=== PATIENT | female | born 1965 | race Two or more races ===

== ENCOUNTER → 2017-08-11 | Outpatient (CLI) | payer OTHER ==
[~2017-08-11] MED LIST: SYNTHROID125 MCG; SYNTHROID125 MCG PO; VITAMINA D PO
== END | disposition home or self-care (01) ==
LOC: PPHC 11:07
DX: M25.50 Pain in unspecified joint (principal)

== ENCOUNTER 2017-08-15 15:14 | Outpatient (CLI) | payer OTHER | END 2017-08-15 15:41 | disposition home or self-care (01) | LOC: RAD 15:14 | DX: M54.9 Dorsalgia, unspecified (principal) ==

== ENCOUNTER → 2017-08-15 18:19 | Outpatient (CLI) | payer OTHER | END | disposition home or self-care (01) | LOC: LAB 08:33 | DX: M25.50 Pain in unspecified joint (principal); E03.8 Other specified hypothyroidism; E55.9 Vitamin D deficiency, unspecified; R53.1 Weakness ==

== ENCOUNTER → 2017-08-20 | Outpatient (CLI) | payer OTHER | END | disposition home or self-care (01) | LOC: PPHC 10:22 | DX: Z01.89 Encounter for other specified special examinations (principal) ==

== ENCOUNTER 2017-10-28 08:18 | Outpatient (CLI) | payer OTHER | END 2017-10-28 08:26 | disposition home or self-care (01) | LOC: MAMO-SONO 08:18 | DX: Z12.31 Encounter for screening mammogram for malignant neoplasm of breast (principal) ==

== ENCOUNTER 2017-11-07 12:01 | Emergency (ER) | payer OTHER ==
[~2017-11-07] VITALS: Ht 162.6 cm; Wt 68.0 kg
[2017-11-07] MEDS ORDERED: [UNRECOGNIZED DRUG - OTHER] (12:19)
== END 2017-11-07 15:25 | disposition home or self-care (01) ==
LOC: ER 12:01
DX: M94.0 Chondrocostal junction syndrome [Tietze] (principal)

== ENCOUNTER 2017-11-09 12:35 | Outpatient (CLI) | payer OTHER ==
[~2017-11-09 12:35] MED LIST changes: +[UNRECOGNIZED DRUG - OTHER]
== END 2017-11-09 12:43 | disposition home or self-care (01) ==
LOC: SONOGRAMA 12:35 → MAMO-SONO 12:45
DX: N60.11 Diffuse cystic mastopathy of right breast (principal); N60.12 Diffuse cystic mastopathy of left breast

== ENCOUNTER 2018-02-23 12:18 | Outpatient (CLI) | payer OTHER | END 2018-02-23 12:22 | disposition home or self-care (01) | LOC: MAMO-SONO 12:18 | DX: N63.10 Unspecified lump in the right breast, unspecified quadrant (principal) ==

== ENCOUNTER → 2018-02-27 12:59 | Outpatient (CLI) | payer OTHER | END | disposition home or self-care (01) | LOC: LAB 07:53 | DX: M79.1 Myalgia (principal); E55.9 Vitamin D deficiency, unspecified ==

== ENCOUNTER 2018-03-02 12:22 | Outpatient (CLI) | payer OTHER | END 2018-03-02 12:33 | disposition home or self-care (01) | LOC: NUCLEAR 12:22 | DX: M85.80 Other specified disorders of bone density and structure, unspecified site (principal) ==

== ENCOUNTER → 2018-03-23 08:35 | Outpatient (CLI) | payer OTHER | END | disposition home or self-care (01) | LOC: LAB 08:22 | DX: E03.8 Other specified hypothyroidism (principal) ==

== ENCOUNTER 2018-04-10 12:27 | Outpatient (CLI) | payer OTHER | END 2018-04-10 12:44 | disposition home or self-care (01) | LOC: SONOGRAMA 12:27 → MAMO-SONO 13:15 | DX: M75.41 Impingement syndrome of right shoulder (principal) ==

== ENCOUNTER 2018-06-16 08:45 | Outpatient (CLI) | payer OTHER | END 2018-06-16 09:17 | disposition home or self-care (01) | LOC: SONOGRAMA 08:45 | DX: E04.8 Other specified nontoxic goiter (principal) ==

== ENCOUNTER 2018-06-16 14:17 | Outpatient (CLI) | payer OTHER | END 2018-06-16 14:21 | disposition home or self-care (01) | LOC: LAB 14:17 | DX: E03.8 Other specified hypothyroidism (principal) ==

== ENCOUNTER → 2018-08-24 | Outpatient (CLI) | payer OTHER | END | disposition home or self-care (01) | LOC: EKG 10:34 | DX: I11.9 Hypertensive heart disease without heart failure (principal) ==

== ENCOUNTER 2018-09-28 14:30 | Outpatient (CLI) | payer OTHER | END 2018-09-28 14:33 | disposition home or self-care (01) | LOC: LAB 14:30 | DX: E03.8 Other specified hypothyroidism (principal); N95.1 Menopausal and female climacteric states ==

== ENCOUNTER 2018-11-28 16:51 | Emergency (ER) | payer OTHER ==
[~2018-11-28] VITALS: Ht 162.6 cm; Wt 73.9 kg
== END 2018-11-28 20:45 | disposition home or self-care (01) ==
LOC: ER 16:51
DX: S00.83XA Contusion of other part of head, initial encounter (principal); S40.012A Contusion of left shoulder, initial encounter; S70.02XA Contusion of left hip, initial encounter; W18.39XA Other fall on same level, initial encounter; Y93.89 Activity, other specified; Y92.098 Other place in other non-institutional residence as the place of occurrence of the external cause; Y99.8 Other external cause status

== ENCOUNTER 2019-01-03 11:17 | Outpatient (CLI) | payer OTHER | END 2019-01-03 13:42 | disposition home or self-care (01) | LOC: LAB 11:17 | DX: A49.3 Mycoplasma infection, unspecified site (principal); J11.1 Influenza due to unidentified influenza virus with other respiratory manifestations ==

== ENCOUNTER 2019-01-10 08:42 | Outpatient (CLI) | payer OTHER | END 2019-01-10 08:45 | disposition home or self-care (01) | LOC: LAB 08:42 | DX: E03.8 Other specified hypothyroidism (principal) ==

== ENCOUNTER 2019-01-10 14:10 | Outpatient (CLI) | payer OTHER | END 2019-01-10 14:28 | disposition home or self-care (01) | LOC: MAMO-SONO 14:10 | DX: Z12.31 Encounter for screening mammogram for malignant neoplasm of breast (principal); Z87.898 Personal history of other specified conditions; N64.4 Mastodynia ==

== ENCOUNTER → 2019-01-11 | Outpatient (CLI) | payer OTHER | END | disposition home or self-care (01) | LOC: RAD 14:28 | DX: M25.551 Pain in right hip (principal); M79.604 Pain in right leg; M25.60 Stiffness of unspecified joint, not elsewhere classified ==

== ENCOUNTER → 2019-02-09 | Outpatient (CLI) | payer OTHER | END | disposition home or self-care (01) | LOC: SONOGRAMA 13:04 → MAMO-SONO 13:15 | DX: M70.61 Trochanteric bursitis, right hip (principal) ==

== ENCOUNTER 2019-04-03 08:49 | Outpatient (CLI) | payer OTHER | END 2019-04-03 08:53 | disposition home or self-care (01) | LOC: LAB 08:49 | DX: E03.8 Other specified hypothyroidism (principal) ==

== ENCOUNTER 2019-04-23 07:07 | Outpatient (CLI) | payer OTHER | END 2019-04-23 07:11 | disposition home or self-care (01) | LOC: LAB 07:07 | DX: D50.8 Other iron deficiency anemias (principal); E83.51 Hypocalcemia; N39.0 Urinary tract infection, site not specified; E78.00 Pure hypercholesterolemia, unspecified; E03.8 Other specified hypothyroidism ==

== ENCOUNTER 2019-08-02 08:44 | Outpatient (CLI) | payer OTHER | END 2019-08-02 15:00 | disposition home or self-care (01) | LOC: LAB 08:44 | DX: E03.8 Other specified hypothyroidism (principal) ==

== ENCOUNTER → 2019-11-20 | Outpatient (CLI) | payer OTHER | END | disposition home or self-care (01) | LOC: SONOGRAMA 14:18 | PROVIDERS: ATTEND General Practice | DX: R10.2 Pelvic and perineal pain (principal) ==

== ENCOUNTER → 2019-11-21 08:10 | Outpatient (CLI) | payer OTHER | END | disposition home or self-care (01) | LOC: LAB 08:10 | PROVIDERS: ATTEND General Practice | DX: R10.2 Pelvic and perineal pain (principal) ==

== ENCOUNTER 2020-01-28 11:00 | Emergency (ER) | payer OTHER ==
[~2020-01-28] VITALS: Ht 162.6 cm; Wt 68.5 kg
[2020-01-28] MEDS ORDERED: DICLOFENAC SODI50 MG PO (15:16)
== END 2020-01-28 15:57 | disposition home or self-care (01) ==
LOC: ER 11:00
DX: R07.89 Other chest pain (principal); F41.9 Anxiety disorder, unspecified; Z03.818 Encounter for observation for suspected exposure to other biological agents ruled out

== ENCOUNTER → 2020-02-07 07:37 | Outpatient (CLI) | payer OTHER ==
[~2020-02-07 07:37] MED LIST changes: +DICLOFENAC SODI50 MG PO
== END | disposition home or self-care (01) ==
LOC: LAB 07:37
PROVIDERS: ATTEND Internal Medicine Endocrinology, Diabetes & Metabolism
DX: E03.8 Other specified hypothyroidism (principal)

== ENCOUNTER 2020-02-11 15:59 | Outpatient (CLI) | payer OTHER | END 2020-02-11 16:03 | disposition home or self-care (01) | LOC: RAD 15:59 | PROVIDERS: ATTEND Physical Medicine & Rehabilitation | DX: M54.2 Cervicalgia (principal) ==

== ENCOUNTER → 2020-02-12 08:00 | Outpatient (CLI) | payer OTHER | END | disposition home or self-care (01) | LOC: PPH VACUNA 08:00 | DX: Z23 Encounter for immunization (principal) ==

== ENCOUNTER → 2020-02-28 12:04 | Outpatient (CLI) | payer OTHER | END | disposition home or self-care (01) | LOC: LAB 12:04 | PROVIDERS: ATTEND Internal Medicine Cardiovascular Disease | DX: E03.8 Other specified hypothyroidism (principal); I10 Essential (primary) hypertension; E11.9 Type 2 diabetes mellitus without complications; E78.2 Mixed hyperlipidemia; E55.9 Vitamin D deficiency, unspecified ==

== ENCOUNTER 2020-02-28 15:03 | Outpatient (CLI) | payer OTHER | END 2020-02-28 15:12 | disposition home or self-care (01) | LOC: MAMO-SONO 15:03 | PROVIDERS: ATTEND Internal Medicine Cardiovascular Disease | DX: Z12.31 Encounter for screening mammogram for malignant neoplasm of breast (principal); N63.11 Unspecified lump in the right breast, upper outer quadrant ==

== ENCOUNTER 2020-03-12 10:06 | Outpatient (CLI) | payer OTHER | END 2020-03-12 10:18 | disposition home or self-care (01) | LOC: NUCLEAR 10:06 | PROVIDERS: ATTEND Physical Medicine & Rehabilitation | DX: M81.0 Age-related osteoporosis without current pathological fracture (principal) ==

== ENCOUNTER 2020-03-20 13:38 | Outpatient (CLI) | payer OTHER | END 2020-03-20 15:00 | disposition home or self-care (01) | LOC: LAB 13:38 | DX: Z20.818 Contact with and (suspected) exposure to other bacterial communicable diseases (principal) ==

== ENCOUNTER 2020-04-03 10:40 | Emergency (ER) | payer OTHER ==
[~2020-04-03] VITALS: Ht 157.5 cm; Wt 69.9 kg
[2020-04-03] MEDS ORDERED: SKELAXIN800 MG PO (15:54)
[2020-04-03] MEDS ORDERED: KETO10TA2 PO (15:54)
== END 2020-04-03 16:13 | disposition home or self-care (01) ==
LOC: ER 10:40
DX: M94.0 Chondrocostal junction syndrome [Tietze] (principal); R07.89 Other chest pain; Z03.818 Encounter for observation for suspected exposure to other biological agents ruled out

== ENCOUNTER 2020-04-11 12:29 | Outpatient (CLI) | payer OTHER ==
[~2020-04-11 12:29] MED LIST changes: +KETO10TA2 PO; +SKELAXIN800 MG PO
== END 2020-04-11 15:00 | disposition home or self-care (01) ==
LOC: MRI 12:29
PROVIDERS: ATTEND Physical Medicine & Rehabilitation
DX: M62.830 Muscle spasm of back (principal); M54.2 Cervicalgia
CPT/HCPCS: 72141

== ENCOUNTER 2020-06-09 14:27 | Outpatient (CLI) | payer OTHER | END 2020-06-09 16:01 | disposition home or self-care (01) | LOC: RAD 14:27 | DX: M41.84 Other forms of scoliosis, thoracic region (principal); M99.02 Segmental and somatic dysfunction of thoracic region ==

== ENCOUNTER 2020-06-20 08:51 | Outpatient (CLI) | payer OTHER | END 2020-06-20 09:00 | disposition home or self-care (01) | LOC: LAB 08:51 | DX: E78.89 Other lipoprotein metabolism disorders (principal); E06.3 Autoimmune thyroiditis ==

== ENCOUNTER 2020-08-27 08:35 | Outpatient (CLI) | payer OTHER | END 2020-08-27 08:36 | disposition home or self-care (01) | LOC: LAB 08:35 | PROVIDERS: ATTEND Specialist | DX: D50.9 Iron deficiency anemia, unspecified (principal); E83.51 Hypocalcemia; N39.0 Urinary tract infection, site not specified; E03.8 Other specified hypothyroidism; E78.89 Other lipoprotein metabolism disorders ==

== ENCOUNTER 2020-10-22 12:34 | Outpatient (CLI) | payer OTHER | END 2020-10-22 12:38 | disposition home or self-care (01) | LOC: SONOGRAMA 12:34 → MAMO-SONO 13:25 | PROVIDERS: ATTEND Internal Medicine Endocrinology, Diabetes & Metabolism | DX: E04.2 Nontoxic multinodular goiter (principal) ==

== ENCOUNTER 2020-12-24 08:50 | Outpatient (CLI) | payer OTHER | END 2020-12-24 15:00 | disposition home or self-care (01) | LOC: LAB 08:50 | PROVIDERS: ATTEND Emergency Medicine Pediatric Emergency Medicine | DX: Z03.818 Encounter for observation for suspected exposure to other biological agents ruled out (principal) ==

== ENCOUNTER → 2021-01-07 08:25 | Outpatient (CLI) | payer OTHER | END | disposition home or self-care (01) | LOC: LAB 08:25 | PROVIDERS: ATTEND Internal Medicine Cardiovascular Disease | DX: I10 Essential (primary) hypertension (principal); E11.9 Type 2 diabetes mellitus without complications; E03.8 Other specified hypothyroidism; E78.2 Mixed hyperlipidemia; M19.90 Unspecified osteoarthritis, unspecified site; A05.8 Other specified bacterial foodborne intoxications ==

== ENCOUNTER 2021-01-08 07:49 | Outpatient (CLI) | payer OTHER | END 2021-01-08 13:20 | disposition home or self-care (01) | LOC: LAB 07:49 | PROVIDERS: ATTEND Internal Medicine Cardiovascular Disease | DX: I10 Essential (primary) hypertension (principal); E11.9 Type 2 diabetes mellitus without complications; E03.8 Other specified hypothyroidism; E78.2 Mixed hyperlipidemia ==

== ENCOUNTER → 2021-02-18 07:42 | Outpatient (CLI) | payer OTHER | END | disposition home or self-care (01) | LOC: LAB 07:42 | PROVIDERS: ATTEND Internal Medicine Cardiovascular Disease | DX: N39.0 Urinary tract infection, site not specified (principal); M12.88 Other specific arthropathies, not elsewhere classified, other specified site; R10.84 Generalized abdominal pain ==

== ENCOUNTER 2021-02-18 08:13 | Outpatient (CLI) | payer OTHER | END 2021-02-18 08:20 | disposition home or self-care (01) | LOC: SONOGRAMA 08:13 | PROVIDERS: ATTEND Internal Medicine Cardiovascular Disease | DX: R10.84 Generalized abdominal pain (principal); N20.0 Calculus of kidney ==

== ENCOUNTER 2021-05-05 07:27 | Outpatient (CLI) | payer OTHER | END 2021-05-05 07:29 | disposition home or self-care (01) | LOC: LAB 07:27 | PROVIDERS: ATTEND Internal Medicine Cardiovascular Disease | DX: I10 Essential (primary) hypertension (principal); E11.9 Type 2 diabetes mellitus without complications; D68.8 Other specified coagulation defects ==

== ENCOUNTER 2021-05-08 11:25 | Outpatient (CLI) | payer OTHER | END 2021-05-08 11:33 | disposition home or self-care (01) | LOC: LAB 11:25 | PROVIDERS: ATTEND Internal Medicine Gastroenterology | DX: Z11.52 Encounter for screening for COVID-19 (principal) ==

== ENCOUNTER 2021-05-25 07:30 | Outpatient (CLI) | payer OTHER | END 2021-05-25 07:45 | disposition home or self-care (01) | LOC: PPH VACUNA 07:30 | PROVIDERS: ATTEND Emergency Medicine Pediatric Emergency Medicine | DX: Z23 Encounter for immunization (principal) ==

== ENCOUNTER 2021-06-15 12:49 | Outpatient (CLI) | payer OTHER | END 2021-06-15 12:58 | disposition home or self-care (01) | LOC: SONOGRAMA 12:49 | PROVIDERS: ATTEND Internal Medicine Endocrinology, Diabetes & Metabolism | DX: E04.2 Nontoxic multinodular goiter (principal) ==

== ENCOUNTER 2021-07-14 09:31 | Outpatient (CLI) | payer OTHER | END 2021-07-14 10:07 | disposition home or self-care (01) | LOC: SONOGRAMA 09:31 | PROVIDERS: ATTEND General Practice | DX: R10.9 Unspecified abdominal pain (principal) ==

== ENCOUNTER 2021-07-14 09:37 | Outpatient (CLI) | payer OTHER | END 2021-07-14 09:38 | disposition home or self-care (01) | LOC: LAB 09:37 | PROVIDERS: ATTEND General Practice | DX: E78.5 Hyperlipidemia, unspecified (principal); Z00.00 Encounter for general adult medical examination without abnormal findings; E55.9 Vitamin D deficiency, unspecified; N39.0 Urinary tract infection, site not specified; R42 Dizziness and giddiness; R10.9 Unspecified abdominal pain ==

== ENCOUNTER 2021-08-06 07:45 | Outpatient (CLI) | payer OTHER | END 2021-08-06 07:46 | disposition home or self-care (01) | LOC: LAB 07:45 | PROVIDERS: ATTEND Obstetrics & Gynecology | DX: N39.0 Urinary tract infection, site not specified (principal); R74.01 Elevation of levels of liver transaminase levels ==

== ENCOUNTER 2021-08-10 07:02 | Outpatient (CLI) | payer OTHER | END 2021-08-10 11:39 | disposition home or self-care (01) | LOC: SONOGRAMA 07:02 | PROVIDERS: ATTEND Obstetrics & Gynecology | DX: M84.60 Pathological fracture in other disease, unspecified site (principal); Z12.31 Encounter for screening mammogram for malignant neoplasm of breast; N60.11 Diffuse cystic mastopathy of right breast; N60.12 Diffuse cystic mastopathy of left breast; R10.9 Unspecified abdominal pain; N95.1 Menopausal and female climacteric states; M85.10 Skeletal fluorosis, unspecified site ==

== ENCOUNTER 2021-12-02 11:56 | Outpatient (CLI) | payer OTHER | END 2021-12-02 12:10 | disposition home or self-care (01) | LOC: EDBD 11:56 → MRI 11:56 | PROVIDERS: ATTEND Physical Medicine & Rehabilitation | DX: M54.2 Cervicalgia (principal); M54.42 Lumbago with sciatica, left side | CPT/HCPCS: 72141 ==

== ENCOUNTER 2021-12-04 13:21 | Emergency (ER) | payer OTHER ==
[~2021-12-04] VITALS: Ht 162.6 cm; Wt 68.0 kg
[2021-12-04] MEDS ORDERED: MEDROLPACK PO (16:27)
== END 2021-12-04 17:23 | disposition home or self-care (01) ==
LOC: ER 13:21
DX: R07.89 Other chest pain (principal); Z20.822 Contact with and (suspected) exposure to COVID-19

== ENCOUNTER 2022-02-02 13:19 | Outpatient (CLI) | payer OTHER ==
[~2022-02-02 13:19] MED LIST changes: +MEDROLPACK PO
== END 2022-02-02 13:27 | disposition home or self-care (01) ==
LOC: LAB 13:19
PROVIDERS: ATTEND Internal Medicine Allergy & Immunology
DX: N39.0 Urinary tract infection, site not specified (principal); L50.8 Other urticaria; T78.3XXA Angioneurotic edema, initial encounter; I10 Essential (primary) hypertension; E78.5 Hyperlipidemia, unspecified; E07.9 Disorder of thyroid, unspecified; M25.50 Pain in unspecified joint

== ENCOUNTER 2022-03-05 13:06 | Outpatient (CLI) | payer OTHER | END 2022-03-05 13:08 | disposition home or self-care (01) | LOC: PPH VACUNA 13:06 | PROVIDERS: ATTEND Emergency Medicine Pediatric Emergency Medicine | DX: Z23 Encounter for immunization (principal) ==

== ENCOUNTER → 2022-03-05 | Outpatient (CLI) | payer OTHER | END | disposition home or self-care (01) | LOC: NUCLEAR 10:55 | DX: M81.0 Age-related osteoporosis without current pathological fracture (principal); E55.9 Vitamin D deficiency, unspecified ==

== ENCOUNTER → 2022-06-14 07:25 | Outpatient (CLI) | payer OTHER | END | disposition home or self-care (01) | LOC: LAB 07:25 | PROVIDERS: ATTEND Internal Medicine Cardiovascular Disease | DX: I10 Essential (primary) hypertension (principal); E11.9 Type 2 diabetes mellitus without complications; E03.9 Hypothyroidism, unspecified; E78.2 Mixed hyperlipidemia; E55.9 Vitamin D deficiency, unspecified ==

== ENCOUNTER 2022-11-15 08:23 | Outpatient (CLI) | payer OTHER ==
[~2022-11-15 08:23] MED LIST changes: +METAXALONE800 MG PO
== END 2022-11-15 08:30 | disposition home or self-care (01) ==
LOC: LAB 08:23
PROVIDERS: ATTEND Internal Medicine Cardiovascular Disease
DX: I10 Essential (primary) hypertension (principal); E11.9 Type 2 diabetes mellitus without complications; E03.9 Hypothyroidism, unspecified; E78.2 Mixed hyperlipidemia

== ENCOUNTER 2023-03-17 11:38 | Outpatient (CLI) | payer OTHER | END 2023-03-17 14:32 | disposition home or self-care (01) | LOC: MAMO-SONO 11:38 | PROVIDERS: ATTEND Internal Medicine Cardiovascular Disease | DX: Z12.31 Encounter for screening mammogram for malignant neoplasm of breast (principal); N63.12 Unspecified lump in the right breast, upper inner quadrant; N60.12 Diffuse cystic mastopathy of left breast ==

== ENCOUNTER 2023-04-08 08:11 | Outpatient (CLI) | payer OTHER ==
[2023-04-08 08:35] LABS: HEMATOCRIT 39.5 % (36.0-45.00); HEMOGLOBIN 13.3 g/dL (12.0-15.00); MEAN CELL VOLUME 86.9 fL (80.00-100.00); MEAN CORPUSCULAR HEMOGLOBIN 29.2 pg (27.00-32.0); MEAN CORPUSCULAR HGB CONC 33.5 g/dl (32.0-36.0); PLATELET COUNT 237 K/uL (150-450); RED BLOOD COUNT 4.55 M/uL (4.00-6.00); RED CELL DISTRIBUTION WIDTH 12.8 % (11.5-14.5)
[2023-04-08 08:39] LABS: PH,URINE 6.5 (5.0-8.0); URINE APPEARANCE Clear; URINE BILIRRUBIN Negative (NEGATIVE); URINE BLOOD Negative; URINE COLOR Yellow; URINE GLUCOSE Negative (NEGATIVE); URINE LEUKOCYTE Trace; URINE NITRATE Negative; URINE PROTEIN Negative (NEGATIVE); URINE UROBILINOGEN 0.2 E.U./dl
[2023-04-08 08:44] LABS: URINE BACTERIA 69.2 uL (0.0-1933); URINE EPITHELIAL CELLS 3.5 uL (0.0-38.8); URINE RBC 6.1 uL (0.0-20.8)
[2023-04-08 09:32] LABS: URINE WBC 1.5 uL (0.0-23.2)
[2023-04-08 10:03] LABS: ALBUMIN 3.4 gm/dL (3.4-5.0); BILIRUBIN TOTAL 0.43 mg/dL (0.3-1.2); CHOL HDL RATIO 3.2 (0-5.0); CREATININE SERUM 0.72 mg/dL (0.55-1.02); GFR 84.1; GLOBULINA 3.8 G/DL (2.4-3.5); POTASSIUM 4.25 mEq/L (3.5-5.1); T4 TOTAL 11.93 UG/DL (4.8-13.9); TOTAL PROTEIN 7.2 gm/dL (6.4-8.2)
[2023-04-08 10:05] LABS: TSH 0.16 uIU/mL (0.358-3.74)
== END 2023-04-08 08:19 | disposition home or self-care (01) ==
LOC: LAB 08:11
PROVIDERS: ATTEND Internal Medicine Cardiovascular Disease
DX: I10 Essential (primary) hypertension (principal); E11.9 Type 2 diabetes mellitus without complications; E03.9 Hypothyroidism, unspecified; E78.2 Mixed hyperlipidemia

== ENCOUNTER 2023-05-17 01:00 | Outpatient (CLI) | payer OTHER | END 2023-05-17 01:10 | disposition home or self-care (01) | LOC: PPH VACUNA 01:00 | PROVIDERS: ATTEND Emergency Medicine Pediatric Emergency Medicine | DX: Z23 Encounter for immunization (principal) | CPT/HCPCS: 90686; G0008 ==

== ENCOUNTER 2023-08-30 10:00 | Outpatient (CLI) | payer OTHER ==
[2023-08-30 08:49] LABS: HEMATOCRIT 39.6 % (36.0-45.00); HEMOGLOBIN 13.5 g/dL (12.0-15.00); MEAN CELL VOLUME 86.1 fL (80.00-100.00); MEAN CORPUSCULAR HEMOGLOBIN 29.3 pg (27.00-32.0); MEAN CORPUSCULAR HGB CONC 34.1 g/dl (32.0-36.0); PLATELET COUNT 219 K/uL (150-450); RED CELL DISTRIBUTION WIDTH 13.3 % (11.5-14.5)
[2023-08-30 09:13] LABS: PH,URINE 6.5 (5.0-8.0); URINE APPEARANCE Clear; URINE BILIRRUBIN Negative (NEGATIVE); URINE COLOR Yellow; URINE GLUCOSE Negative (NEGATIVE); URINE LEUKOCYTE Small; URINE NITRATE Negative; URINE PROTEIN Negative (NEGATIVE); URINE UROBILINOGEN 0.2 E.U./dl
[2023-08-30 09:14] LABS: ALBUMIN 3.4 gm/dL (3.4-5.0); BILIRUBIN TOTAL 0.51 mg/dL (0.3-1.2); CALCIUM 9.2 mg/dL (8.5-10.1); CHOL HDL RATIO 3.6 (0-5.0); CREATININE SERUM 0.88 mg/dL (0.55-1.02); GFR 66.47; GLOBULINA 3.9 G/DL (2.4-3.5); POTASSIUM 4.1 mEq/L (3.5-5.1); T4 TOTAL 12.55 UG/DL (4.8-13.9); TOTAL PROTEIN 7.3 gm/dL (6.4-8.2); TSH 0.567 uIU/mL (0.358-3.74)
[2023-08-30 09:17] LABS: URINE BACTERIA 134.7 uL (0.0-1933); URINE EPITHELIAL CELLS 10.3 uL (0.0-38.8); URINE RBC 8.7 uL (0.0-20.8)
[2023-08-30 09:31] LABS: URINE BLOOD TRACES; URINE WBC 1.5 uL (0.0-23.2)
== END 2023-08-30 15:00 | disposition home or self-care (01) ==
LOC: LAB 10:00
PROVIDERS: ATTEND Internal Medicine Cardiovascular Disease
DX: I10 Essential (primary) hypertension (principal); E11.9 Type 2 diabetes mellitus without complications; E03.9 Hypothyroidism, unspecified; E78.2 Mixed hyperlipidemia; E55.9 Vitamin D deficiency, unspecified

== ENCOUNTER 2024-01-24 07:46 | Outpatient (CLI) | payer OTHER ==
[~2024-01-24 07:46] MED LIST changes: +DICLOFENAC POTA50 MG PO
[2024-01-24 08:38] LABS: HEMATOCRIT 40.9 % (36.0-45.00); HEMOGLOBIN 13.9 g/dL (12.0-15.00); MEAN CELL VOLUME 88.3 fL (80.00-100.00); PLATELET COUNT 239 K/uL (150-450); RED BLOOD COUNT 4.63 M/uL (4.00-6.00); RED CELL DISTRIBUTION WIDTH 13.6 % (11.5-14.5)
[2024-01-24 09:09] LABS: PH,URINE 7.5 (5.0-8.0); URINE APPEARANCE Clear; URINE BILIRRUBIN Negative (NEGATIVE); URINE BLOOD Negative; URINE COLOR Yellow; URINE GLUCOSE Negative (NEGATIVE); URINE KETONE Negative (NEGATIVE); URINE LEUKOCYTE Small; URINE NITRATE Negative; URINE PROTEIN Negative (NEGATIVE); URINE UROBILINOGEN 0.2 E.U./dl
[2024-01-24 09:15] LABS: URINE BACTERIA 561.9 uL (0.0-1933); URINE EPITHELIAL CELLS 11.2 uL (0.0-38.8); URINE RBC 7.3 uL (0.0-20.8)
[2024-01-24 09:27] LABS: CALCIUM 9.5 mg/dL (8.5-10.1); CHOL HDL RATIO 3.3 (0-5.0); CREATININE SERUM 0.75 mg/dL (0.55-1.02); GFR 79.93; POTASSIUM 4.03 mEq/L (3.5-5.1); TSH 1.15 uIU/mL (0.358-3.74)
== END 2024-01-24 07:51 | disposition home or self-care (01) ==
LOC: LAB 07:46
PROVIDERS: ATTEND Internal Medicine Cardiovascular Disease
DX: E11.9 Type 2 diabetes mellitus without complications (principal); E03.9 Hypothyroidism, unspecified; E78.2 Mixed hyperlipidemia; I10 Essential (primary) hypertension

== ENCOUNTER 2024-03-20 11:00 | Outpatient (CLI) | payer OTHER | END 2024-03-20 11:04 | disposition home or self-care (01) | LOC: MAMO-SONO 11:00 | PROVIDERS: ATTEND Surgery | DX: N60.11 Diffuse cystic mastopathy of right breast (principal); N60.12 Diffuse cystic mastopathy of left breast ==

== ENCOUNTER 2024-04-16 11:30 | Outpatient (CLI) | payer OTHER | END 2024-04-16 11:40 | disposition home or self-care (01) | LOC: PPH VACUNA 11:30 | PROVIDERS: ATTEND Emergency Medicine Pediatric Emergency Medicine | DX: Z23 Encounter for immunization (principal) ==

== ENCOUNTER 2024-06-22 08:00 | Outpatient (CLI) | payer OTHER ==
[2024-06-22 09:01] LABS: HEMATOCRIT 39.2 % (36.0-45.00); HEMOGLOBIN 13.3 g/dL (12.0-15.00); MEAN CELL VOLUME 86.6 fL (80.00-100.00); MEAN CORPUSCULAR HEMOGLOBIN 29.3 pg (27.00-32.0); MEAN CORPUSCULAR HGB CONC 33.9 g/dl (32.0-36.0); PLATELET COUNT 232 K/uL (150-450); RED BLOOD COUNT 4.52 M/uL (4.00-6.00); RED CELL DISTRIBUTION WIDTH 13.2 % (11.5-14.5)
[2024-06-22 09:18] LABS: PH,URINE 7.5 (5.0-8.0); URINE APPEARANCE Clear; URINE BILIRRUBIN Negative (NEGATIVE); URINE BLOOD Negative; URINE COLOR Yellow; URINE GLUCOSE Negative (NEGATIVE); URINE KETONE Negative (NEGATIVE); URINE LEUKOCYTE Small; URINE NITRATE Negative; URINE PROTEIN Negative (NEGATIVE); URINE UROBILINOGEN 0.2 E.U./dl
[2024-06-22 09:28] LABS: URINE BACTERIA 439.3 uL (0.0-1933); URINE EPITHELIAL CELLS 14.3 uL (0.0-38.8); URINE RBC 10.8 uL (0.0-20.8); URINE WBC 5.5 uL (0.0-23.2)
[2024-06-22 10:22] LABS: CALCIUM 9.1 mg/dL (8.5-10.1); CHOL HDL RATIO 3.5 (0-5.0); CREATININE SERUM 0.7 mg/dL (0.55-1.02); GFR 86.25; POTASSIUM 4.24 mEq/L (3.5-5.1); T4 TOTAL 13.84 UG/DL (4.8-13.9); TSH 0.507 uIU/mL (0.358-3.74)
[2024-06-22 13:11] LABS: T3 TOTAL 1.24 ng/ml (0.846-2.02); VITAMIN D3 25 HYDROXY 39.85 ng/ml (30-120)
== END 2024-06-22 08:01 | disposition home or self-care (01) ==
LOC: LAB 08:00
PROVIDERS: ATTEND Internal Medicine Cardiovascular Disease
DX: I10 Essential (primary) hypertension (principal); E11.9 Type 2 diabetes mellitus without complications; E03.9 Hypothyroidism, unspecified; E78.2 Mixed hyperlipidemia

== ENCOUNTER → 2024-08-23 | Outpatient (CLI) | payer OTHER ==
[2024-08-23 08:22] LABS: HEMATOCRIT 40.3 % (36.0-45.00); HEMOGLOBIN 13.7 g/dL (12.0-15.00); MEAN CELL VOLUME 86.6 fL (80.00-100.00); MEAN CORPUSCULAR HEMOGLOBIN 29.4 pg (27.00-32.0); PLATELET COUNT 255 K/uL (150-450); RED BLOOD COUNT 4.65 M/uL (4.00-6.00); RED CELL DISTRIBUTION WIDTH 13.4 % (11.5-14.5)
[2024-08-23 09:24] LABS: ALBUMIN 3.2 gm/dL (3.4-5.0); BILIRUBIN TOTAL 0.64 mg/dL (0.3-1.2); CALCIUM 8.7 mg/dL (8.5-10.1); CHOL HDL RATIO 4.3 (0-5.0); CREATININE SERUM 0.72 mg/dL (0.55-1.02); GFR 83.49; GLOBULINA 3.8 G/DL (2.4-3.5); POTASSIUM 4.37 mEq/L (3.5-5.1); T4 FREE 1.29 NG/ML (0.76-1.46); TSH 1.89 uIU/mL (0.358-3.74)
[2024-08-24 17:10] LABS: ERYTHROPOIETIN 7.2 mIU/mL (2.6-18.5)
== END | disposition home or self-care (01) ==
LOC: LAB 08-22 12:53
PROVIDERS: ATTEND Neuromusculoskeletal Medicine & OMM
DX: E78.00 Pure hypercholesterolemia, unspecified (principal); E78.1 Pure hyperglyceridemia; M62.9 Disorder of muscle, unspecified; R20.2 Paresthesia of skin; E03.9 Hypothyroidism, unspecified; R73.9 Hyperglycemia, unspecified; R73.01 Impaired fasting glucose; G62.9 Polyneuropathy, unspecified; E11.9 Type 2 diabetes mellitus without complications

== ENCOUNTER 2024-08-24 07:15 | Outpatient (CLI) | payer OTHER | END 2024-08-24 07:25 | disposition home or self-care (01) | LOC: MRI 07:15 | PROVIDERS: ATTEND Neuromusculoskeletal Medicine & OMM | DX: M50.20 Other cervical disc displacement, unspecified cervical region (principal); R41.3 Other amnesia; D49.6 Neoplasm of unspecified behavior of brain; G40.909 Epilepsy, unspecified, not intractable, without status epilepticus | CPT/HCPCS: 70553; 72141 ==

== ENCOUNTER 2024-10-02 08:31 | Outpatient (CLI) | payer OTHER ==
[2024-10-04 01:11] LABS: HEPATITIS A ANTIBODY IGG Negative (Negative); HEPATITIS B SURFACE ANTIBODY Non Reactive (.); HEPATITIS C VIRUS ANTIBODY Non Reactive (Non Reactive)
== END 2024-10-02 08:32 | disposition home or self-care (01) ==
LOC: LAB 08:31
DX: A64 Unspecified sexually transmitted disease (principal); B19.9 Unspecified viral hepatitis without hepatic coma

== ENCOUNTER 2025-01-03 08:14 | Outpatient (CLI) | payer OTHER ==
[~2025-01-03 08:14] MED LIST changes: +DEPO-MEDRO80 MG/1 ML IJ; +NAPROXEN SODIU550 MG PO; +NORFLEX100MG PO
[2025-01-03 08:26] LABS: BASO % 0.4 % (0.1-1.2); EOS # 0.10 (0.04-0.54); EOS % 1.4 % (0.7-7.0); LYMPH # 2.15 (1.18-3.74); LYMPH % 30.0 % (19.3-53.1); MEAN PLATELET VOLUME 10.50 fl (9.4-12.4); MONO # 0.52 (0.24-0.82); MONO % 7.3 % (4.7-12.5); NEUT # 4.34 (1.56-6.13); NEUT % 60.6 % (34.0-71.1); RED CELL DISTRIBUTION WIDTH 12.4 % (11.6-14.4)
[2025-01-03 08:51] LABS: URINE APPEARANCE Clear; URINE BILIRRUBIN Negative (NEGATIVE); URINE BLOOD Negative; URINE COLOR Yellow; URINE GLUCOSE Negative (NEGATIVE); URINE KETONE Negative (NEGATIVE); URINE LEUKOCYTE Moderate; URINE NITRATE Negative; URINE PROTEIN Negative (NEGATIVE); URINE UROBILINOGEN 0.2 E.U./dl
[2025-01-03 08:55] LABS: URINE BACTERIA 617.8 uL (0.0-1933); URINE EPITHELIAL CELLS 18.7 uL (0.0-38.8); URINE RBC 4.5 uL (0.0-20.8); URINE WBC 5.6 uL (0.0-23.2)
[2025-01-03 09:01] LABS: URINE CAST 0.00 uL (0.0-1.40)
[2025-01-03 09:15] LABS: ALT/SGPT 33.0 U/L (12-78); AST/SGOT 17.0 U/L (15-37); BILIRUBIN TOTAL 0.35 mg/dL (0.3-1.2); BUN CREA RATIO 21.0 (7.0-25.0); CHOL HDL RATIO 3.4 (0-5.0); CREATININE SERUM 0.82 mg/dL (0.55-1.02); GFR 71.85; GLOBULINA 3.8 G/DL (2.4-3.5); GLUCOSE FASTING 76.0 mg/dL (65-100); HDL 52.0 mg/dl (40-60); LDL 111.0 mg/dl (0-130); OSMOLALITY SERUM 282.0 MOSM/KG (275-295); T4 TOTAL 12.19 UG/DL (4.8-13.9); TSH 0.435 uIU/mL (0.358-3.74); VLDL 15.0 (0-39)
[2025-01-03 15:07] LABS: T3 TOTAL 0.865 ng/ml (0.846-2.02); VITAMIN D3 25 HYDROXY 38.51 ng/ml (30-120)
== END 2025-01-03 08:16 | disposition home or self-care (01) ==
LOC: LAB 08:14
PROVIDERS: ATTEND Internal Medicine Cardiovascular Disease
DX: G43.009 Migraine without aura, not intractable, without status migrainosus (principal); R20.2 Paresthesia of skin; E03.9 Hypothyroidism, unspecified; I10 Essential (primary) hypertension; E11.9 Type 2 diabetes mellitus without complications; E78.2 Mixed hyperlipidemia

== ENCOUNTER 2025-01-04 09:44 | Outpatient (CLI) | payer OTHER | END 2025-01-04 09:50 | disposition home or self-care (01) | LOC: RAD 09:44 | PROVIDERS: ATTEND Physical Medicine & Rehabilitation | DX: M75.41 Impingement syndrome of right shoulder (principal) ==

== ENCOUNTER 2025-03-28 12:38 | Outpatient (CLI) | payer OTHER | END 2025-03-28 13:01 | disposition home or self-care (01) | LOC: MAMO-SONO 12:38 | PROVIDERS: ATTEND Surgery | DX: N60.11 Diffuse cystic mastopathy of right breast (principal); N60.12 Diffuse cystic mastopathy of left breast ==

== ENCOUNTER 2025-04-04 13:40 | Outpatient (CLI) | payer OTHER | END 2025-04-04 13:50 | disposition home or self-care (01) | LOC: PPH VACUNA 13:40 | PROVIDERS: ATTEND Emergency Medicine Pediatric Emergency Medicine | DX: Z23 Encounter for immunization (principal) ==